=== PATIENT | male | born 1980 | race Caucasian/White ===

== ENCOUNTER → 2019-12-31 11:21 | Outpatient (CLI) | payer OTHER, SELFPAY ==
[2016-02-26 19:28] VITALS: BMI 36.2
[2019-12-31 15:10] LABS: Absolute Lymphocyte Count 1.98 X10^3/uL (0.83-4.51); Absolute Neutrophil Count 4.8 X10^3/uL (2.0-7.7); Basophil# 0.04 X10^3/uL; Basophil% 0.5 % (0-1); Eosinophil# 0.17 X10^3/uL; Eosinophils% 2.3 % (0-5); Hematocrit 46.6 % (40-54); Hemoglobin 15.3 g/dL (13.0-16.5); Lymphocyte # 1.98 X10^3/ul (4.0); Lymphocyte % 26.5 % (19-41); Mean Corp Hgb Conc 32.8 g/dL (32-36); Mean Corpuscular Hgb 30.7 pg (27.0-32.0); Mean Corpuscular Volume 93.6 fL (80-94); Monocyte# 0.45 X10^3/uL; NRBC Flagged by Analyzer 0 % (0-5); Neutrophil # 4.82 X10^3/uL (2.7-7.7); Neutrophil % 64.6 % (47-70); Platelet Count 243 K/mm3 (150-450); RBC Distribution Width CV 13.5 % (11.6-14.6); RBC Distribution Width SD 45.8 fl (35.1-43.9); Red Blood Count 4.98 M/mm3 (4.6-6.2); White Blood Count 7.5 K/mm3 (4.4-11.0)
[2019-12-31 15:33] LABS: ALB/GLOB Ratio 1.1 RATIO (0.9-2.4); AST(SGOT) 17 U/L (15-37); Alanine Aminotransfer ALT/SGPT 24 U/L (16-61); Albumin, Serum 3.9 g/dL (3.2-5.0); Alkaline Phosphatase 79 U/L (45-117); Anion Gap 3 (5-15); BUN 14 mg/dL (7-18); BUN/Creat Ratio 14.6 RATIO (10-20); Calcium,Total 8.7 mg/dL (8.5-10.1); Chloride 109 mmol/L (98-107); Creatinine, Serum 0.96 mg/dL (0.70-1.30); EST Glomerular Filtration Rate 92 mL/min (>60); Est Glom Filt Rate - Afr Amer 112 mL/min (>60); Globulin 3.6 g/dL (2.2-4.2); Glucose 102 mg/dL (74-106); Magnesium 2.1 mg/dL (1.6-2.6); Potassium 4.2 mmol/L (3.5-5.1); Protein, Total 7.5 g/dL (6.4-8.2); Sodium Level 139 mmol/L (136-145); Thyroid Stim Hormone (TSH) 0.81 uIU/mL (0.358-3.74)
== END ==
PROVIDERS: PCP Family Medicine; Referring Provider Family Medicine; Visit Provider Family Medicine
DX: R00.2 Palpitations (principal)
CPT/HCPCS: 36415; 80053; 83735; 84443; 85025

== ENCOUNTER 2023-02-17 18:04 | Emergency (ER) | payer OTHER, SELFPAY ==
[2023-02-17 18:07] VITALS: BP 157/97; PULSE 96; RESP 18; TEMP 36.1; O2SAT 96; BMI 31.1
--- NOTE | 2023-02-17 18:19 | EDS_ITS ---
HPI History of Present Illness HPI Narrative: Patient presents with injury to his left thumb that occurred today. Patient was using a crossbow and thinks for the crossbow string hit his thumb. Patient describes his pain as aching. Patient states it is worse with certain movements. Patient admits to some tingling and decreased sensation over the tip of his thumb distal to the laceration. Patient denies any weakness. Patient is unsure of his last tetanus but thinks it is within 5 and 10 years. Chief Complaint: Trauma Informant: patient Occured/Mechanism Mechanism/Context: Yes blunt trauma and Yes direct blow Onset/Context/Timing Onset: Today Context: Sudden Onset Timing: Continuous Quality of Pain: Aching Location: Left thumb Worsened by: Movement Relieved by: Nothing Associated Symptoms Associated Symptoms: Positive for Parasthesia; Negative for Weakness or Loss of Funtion Narrative Tetanus Immunization: 5-10 years ROS ROS ED Constitutional Constitutional ED: Denies chills or fever(s) Eyes Eyes: Denies blurry vision or change in vision ENT ENT ED: Denies rhinorrhea or sore throat Cardiovascular Cardiovascular: Denies chest pain or palpitations Respiratory/Chest Respiratory/Chest: Denies cough or dyspnea Gastrointestinal Gastrointestinal: Denies nausea or vomiting Genitourinary Genitourinary ED: Denies dysuria or hematuria Musculoskeletal Musculoskeletal: Denies back pain or neck pain Integumentary Denies abscess or rash Neurologic Neurologic: Denies headache(s) or weakness Allergic/Immunologic Allergic/Immunologic ED: Denies mouth swelling or urticaria PFSH PFSH Medical History no medical history no medical history Home Medications cephalexin 500 mg capsule 500 mg PO Q6 #40 CAPSULES 02/17/23 [Rx Last Taken Unknown] hydrocodone-acetaminophen 5-325mg 5mg-325mg 1 tab PO Q6H PRN PRN Pain 3 days #10 TABLETS 02/17/23 [Rx Last Taken Unknown] Allergy/AdvReac Type Severity Reaction Status Date / Time No Known Allergies Allergy Verified 02/17/23 18:08 Surgical History no surgical history no surgical history Social History Smoking Status: Former smoker EXAM Physical Exam Const Vital Signs: 02/17/23 18:07 02/17/23 18:14 Temperature 97 F L Temperature Source Temporal Pulse Rate 96 Respiratory Rate 18 Respiratory Effort Normal Respiratory Depth Normal Respiratory Pattern Normal Blood Pressure 157/97 H Blood Pressure Mean 117 Pulse Ox 96 Oxygen Delivery Method Room Air Room Air Positive well nourished and well developed General Appearance ED: well developed and NAD HEENT Reports moist mucous membranes Neck full ROM Extremity Extremity Narrative: There is an open fracture of the distal phalanx of the left thumb. There is moderate bleeding noted. There is disruption of the nailbed and nail plate. There are no foreign bodies visualized. Sensation was decreased to light touch in the distal portion of the distal phalanx of the left thumb. There is good range of motion of the proximal phalanx of the left thumb. Sensation was intact to light touch in the radial, median, and ulnar areas. Strength is 5/5 in the radial, median, and ulnar areas. Radial pulses are equal bilaterally. Neuro oriented x3, CN's II-XII intact bilaterally and no sensory deficits noted Sensorium / Orientation: alert Motor Exam: strength 5/5 throughout MDM MDM MDM Narrative Medical decision making narrative: Differential diagnosis includes open fracture and thumb laceration. X-rays of the left thumb will be obtained to assess for fracture. Radiography Diagnostic Testing: Clinical Impression(s) from Imaging Studies Finger X-Ray 02/17/23 18:30 IMPRESSION: Displaced fracture noted involving the first distal phalanx. Electronically Signed: Farooq Ang MD at 18:41 EDT , X-rays of the left thumb were obtained. There are 3 views. On my independent interpretation, there is a displaced complete fracture of the tip of the distal phalanx. Radiologist also interpreted the x-rays and agrees. Treatment and Re-Evaluation Narrative: Patient was given a dose of morphine here. Patient was given a tetanus booster. Patient was given a dose of Ancef. The left thumb was cleaned and irrigated with copious amounts normal saline. The wound was anesthetized 1% lidocaine via digital block. The nailbed was repaired using 5 simple interrupted #5-0 Vicryl sutures. The skin was closed with 8 simple interrupted #4-0 Ethilon sutures. Xeroform and gauze dressing was applied. Patient tolerated the procedure well. Patient was given prescriptions for Keflex and [place]. Patient was given a referral for hand surgery. Patient was instructed to follow-up in 5 days for wound recheck. Patient was instructed to return if worse in any way. Patient understood and was agreeable with the plan. All questions were answered. Procedures Lacerations Left thumb: Length: 4.5 cm Depth: Sub Q Shape: Linear Prep: Sterile Conditions and Chlorhexadine Laceration repair: Digital block, Irrigated, Lidocaine, Subcutaneous sutures (5) and Wound explored Irrigated (ml): 150 Number of Sutures/William: 13 Suture Information: Vicryl (5), Ethilon (8), Simple, 4-0 (Ethilon) and 5-0 (Vicryl) Discharge Plan Triage Chief Complaint: Trauma ED Provider: Jerry Daniels Dx/Rx/DC Orders Clinical Impression: Laceration of left thumb without foreign body with damage to nail, Open fracture of distal phalanx of left thumb Instructions: ED Laceration, Hand: All Closures, ED Fracture, Thumb Prescriptions: New hydrocodone-acetaminophen [hydrocodone-acetaminophen] 5-325 mg tablet 1 tab PO Q6H PRN PRN (Reason: Pain) 3 Days Qty: 10 0RF cephalexin [cephalexin] 500 mg capsule 500 mg PO Q6 Qty: 40 0RF Primary Care Provider: Jordyn Hammonds Referrals: Jordyn Hammonds MD [Primary Care Provider] - Meño Yang MD [Non-Staff] - Disposition Disposition: Home, Self Care
[2023-02-17] MEDS: Lidocaine 1% (20 ml mdv) 20 ML Vial INFILT (18:28)
[2023-02-17] MEDS: Diphth,Pertuss(Acell),Tet Vac 0.5 ML Vial IM (18:28)
--- NOTE | 2023-02-17 18:30 | RAD_ITS ---
INDICATION: Injury/Pain EXAMINATION/TECHNIQUE: X-RAY - LEFT HAND XR Fingers Min 2 Views 3 VIEWS COMPARISON: None. FINDINGS: Fracture through the first distal phalanx with significant separation of the distal tuft in relation to the shaft by over 1 cm as seen on lateral view. There is a soft tissue laceration also present at this location. DIP joint is normal. RAD/Finger(s) Min 2 Views IMPRESSION: Displaced fracture noted involving the first distal phalanx. Electronically Signed: Farooq Ang MD at 18:41 EDT ,
[2023-02-17] MEDS: Cefazolin 1 GM/50 ML BAG IV (18:50)
[2023-02-17] MEDS: Morphine 4 MG/ML Syringe IV (18:50)
[2023-02-17] MEDS: HYDROcodone Bitartrate/Apap 5/325 Tablet PO (20:04)
--- NOTE | 2023-02-17 20:18 | ED.RN ---
XEROFORM APPLIED BY , COVERED BY TELFA, TUBE GAUZE, LANE WRAP, FINGER CAGE AND THEN CLING WRAP.
== END 2023-02-17 20:34 | disposition home or self-care (01) ==
PROVIDERS: Emergency Provider Emergency Medicine; PCP Family Medicine; Visit Provider Emergency Medicine
DX: S62.522B Displaced fracture of distal phalanx of left thumb, initial encounter for open fracture (principal); Z87.891 Personal history of nicotine dependence; X58.XXXA Exposure to other specified factors, initial encounter; Y93.89 Activity, other specified; Z23 Encounter for immunization
CPT/HCPCS: 12002; 11750; 11760; 73140; 90471; 90715; 96365; 96375; 99285; A4216